=== PATIENT | female | born 2000 ===

== ENCOUNTER 2021-01-31 08:55 | Inpatient (IN) | payer OTHER ==
[~2021-01-31] VITALS: Ht 175.3 cm; Wt 84.8 kg
[2021-01-31] MEDS ORDERED: PRENATAL CAPLE1 EAC1 PO (09:57)
== END 2021-02-02 13:10 | disposition home or self-care (01) | DRG 807 ==
LOC: OB/GYN 08:55 → LDR 08:55 → OB/GYN 13:23
PROVIDERS: ADMIT Obstetrics & Gynecology; ATTEND Obstetrics & Gynecology
PROC: 10E0XZZ Delivery of Products of Conception, External Approach (ICD-10-PCS; principal; 2021-01-31)
PROC: 4A1HXFZ Monitoring of Products of Conception, Cardiac Rhythm, External Approach (ICD-10-PCS; 2021-01-31)
DX: O60.14X0 Preterm labor third trimester with preterm delivery third trimester, not applicable or unspecified (principal); Z37.0 Single live birth; Z3A.36 36 weeks gestation of pregnancy; Z20.822 Contact with and (suspected) exposure to COVID-19